=== PATIENT | male | born 1975 | race Caucasian/White ===

== ENCOUNTER 2022-10-08 09:59 | Emergency (ER) | payer OTHER, SELFPAY ==
[2022-10-08 10:18] VITALS: BP 129/90; PULSE 76; RESP 20; TEMP 36.8; O2SAT 98
--- NOTE | 2022-10-08 10:45 | DI.CT_ITS ---
Exam(s) CT HEAD - STROKE PROTOCOL EXAM: CT HEAD - STROKE PROTOCOL CLINICAL HISTORY: right posterior PENA, dizzy, slow response. TECHNIQUE: Imaging Protocol: Axial computed tomography images with coronal and sagittal reformatted images were created and reviewed COMPARISON: No exams were available for comparison FINDINGS: There are no skull fractures. There is no fluid in the visualized paranasal sinuses. There is no evidence of intracranial hemorrhage, mass effect, or shift of midline structures. There are no extra-axial fluid collections. The ventricles are not enlarged or shifted and there is no blo od within the ventricular system nor within the basal cisterns. IMPRESSION: No acute intracranial findings on this noninfused CT scan of the brain. Report called to ER physician. RADIATION DOSE DELIVERED: 781.08mGy.cm Total DLP DATA REPOSITORY: All CT scans at this facility are submitted to the National Radiology Data Registry (NRDR) Dose Index Registry (DIR) with the [employer] (ACR). RADIATION OPTIMIZATION: All CT scans at this facility use at least one of these dose optimization te chniques: automated exposure control; mA and/or kV adjustment per patient size (includes targeted exa ms where dose is matched to clinical indication); or iterative reconstruction.
[2022-10-08 11:01] VITALS: BP 131/78; PULSE 88; RESP 14; O2SAT 98
--- NOTE | 2022-10-08 11:13 | ED.GENADUL_ITS ---
Discharge Plan Disposition Patient Disposition: Home Discharge Details Clinical Impression: Dizziness Primary Care Provider: Elizabeth,Local ED Provider: Ran Cardenas Home Meds and New Rx's Prescriptions: New meclizine 25 mg tablet 25 mg PO BID PRNQty: 20 0RF Continued Jardiance 10 mg tablet 10 mg PO 1XD chlorthalidone 25 mg tablet 50 mg PO 1XD lisinopril 40 mg tablet 40 mg PO 1XD metformin 500 mg tablet extended release 24 hr 1,000 mg PO 1XD Discharge Instructions Instructions: Dizziness (ED) Additional Instructions: Please rest over the next couple days. No exertional activities. Please follow-up with your primary care physician. Return to the emergency department immediately should you have any worsening or new concerning symptoms. Medical Decision Making 1120 --46-year male with history of diabetes and hypertension, here today with dizziness that started while sleeping and associated mild posterior right headache as well as slowed responses this morning. Dizziness has improved since earlier today. Patient is hemodynamically stable. He does have some difficulty with finger-nose and rapid alternating movements and I am concerned about subtle rotary nystagmus. Consider central neurologic process including CVA versus mass. Plan to obtain stat CT of the head and if nondiagnostic plan to MRI brain. -- CT head interpreted by radiology: negative -- Labs reviewed and mild leukocytosis noted. -- MRI of the brain was interpreted by radiology: There are few foci of periventricular signal abnormality on FLAIR imaging.? These are nonspecific and are not associated with hemorrhage or surrounding edema nor restricted diffusion to suggest acute ischemic events. Small post inflammatory retention cyst right maxillary sinus.? No associated fluid level. I spoke with neurology, Dr. Hutton, discussed ED presentation and course as well as MRI results. Regarding MRI findings, she noted these are incidental findings that did not require treatment or follow-up. Patient was given IV fluid bolus and reassessed and notes feeling much better. Patient mentating at baseline. Patient ambulated without any difficulty. I suspect dizziness was peripheral in nature. I will prescribe Antivert. Plan be for discharge with outpatient follow-up with PCP.. He was encouraged to return immediately for any worsening or new concerning symptoms. Lab Data Lab results reviewed: Yes I reviewed the patient's lab results. Labs: Laboratory Tests Range/Units 10/08/22 10/08/22 11:20 11:20 WBC (4.4-10.8) 10^3/uL 10.87 H RBC (4.36-5.78) 10^6/uL 5.72 Hgb (13.5-17.5) g/dL 17.8 H Hct (40.0-50.0) % 52.8 H MCV (80-95) fL 92 MCH (27.0-33.0) pg 31.1 MCHC (32.0-36.0) % 33.7 RDW (11.8-14.1) % 12.5 Plt Count (130-400) 10^3/uL 191 MPV (8.0-11.0) fL 10.0 Immature Gran % 0.4 Neutrophils % 62.7 Lymphocytes % 28.1 Monocytes % 6.5 Eosinophils % 1.7 Basophils % 0.6 Nucleated RBC % (0.0-0.3) % 0.0 Absolute Neutrophils (1.2-6.7) 10^3/uL 6.82 H Absolute Lymphocytes (1.2-3.4) 10^3/uL 3.05 Absolute Monocytes (0.1-0.8) 10^3/uL 0.71 Absolute Eosinophils (0.0-0.7) 10^3/uL 0.18 Absolute Basophils (0.0-0.2) 10^3/uL 0.07 Sodium (136-145) mmol/L 141 Potassium (3.5-5.1) mmol/L 4.2 Chloride (98-107) mmol/L 102 Carbon Dioxide (21.0-32.0) mmol/L 32.0 Anion Gap (3-11) mmol/L 7.0 BUN (7-18) mg/dL 29 H Creatinine (0.70-1.30) mg/dL 1.2 Est GFR (CKD-EPI 2020) (mL/min/1.73m2) 75.06 Glucose (74-106) mg/dL 107 H Calcium (8.5-10.1) mg/dL 9.7 Magnesium (1.8-2.4) mg/dL 2.3 Total Bilirubin (0.2-1.0) mg/dL 0.3 AST (15-37) U/L 18 ALT (16-63) U/L 37 Alkaline Phosphatase (46-116) U/L 73 Total Protein (6.4-8.2) g/dL 7.1 Albumin (3.4-5.0) g/dL 3.4 HPI General Mode of arrival: ambulatory . Date/Time Provider Initiated Documentation: 10/08/22 10:31 . Limitations to Documentation: no limitations . Information obtained by: patient . HPI Narrative: 46-year-old male with history of diabetes, hypertension, here with chief complaint of dizziness. Patient woke up early this morning just because of feeling dizzy while lying in bed. Symptoms worsen when he got up to go to the bathroom. notes he is falling to the side. Dizziness has now resolved but he continues to feel somewhat woozy. He also has associated mild head discomfort right occipital and parietal head. notes he has been somewhat slow to respond this morning. She continues to note that he seems somewhat off. He denies chest pain or shortness of breath. No abdominal pain. Otherwise Related Data Home Medications Medication Instructions Recorded Confirmed chlorthalidone 25 mg tablet 50 mg PO 1XD 10/08/22 10/08/22 empagliflozin 10 mg tablet 10 mg PO 1XD 10/08/22 10/08/22 (Jardiance) lisinopril 40 mg tablet 40 mg PO 1XD 10/08/22 10/08/22 meclizine 25 mg tablet 25 mg PO BID PRN #20 tabs 10/08/22 metformin 500 mg tablet,extended 1,000 mg PO 1XD 10/08/22 10/08/22 release 24 hr Previous Rx's Medication Instructions Recorded meclizine 25 mg tablet 25 mg PO BID PRN #20 tabs 10/08/22 Allergies Allergy/AdvReac Type Severity Reaction Status Date / Time No Known Allergies Allergy Unverified 10/08/22 10:29 General Stated Complaint: GenMedical HALEY: 3 Review of Systems All systems reviewed & are unremarkable except as noted in HPI and below Constitutional Constitutional: Denies fever(s) Eyes Eyes: Denies loss of vision ENT Ears, Nose, Mouth, and Throat: Reports disequilibrium Gastrointestinal Gastrointestinal: Denies abdominal pain Musculoskeletal Musculoskeletal: Denies tingling Neurologic Neurologic: Reports as per HPI, Denies abnormal speech, Reports lack of coordination, Denies localized weakness, Denies loss of vision, Denies seizure- like activity, Denies sensory deficit, Denies tingling and Reports disequilibrium PFSH All Active Problems (Updated 10/08/22 @ 14:36 by Ran Cardenas MD) Dizziness (Acute) Medical History (Updated 10/08/22 @ 14:36 by Ran Cardenas MD) Diabetes HTN (hypertension) Social History Smoking/Tobacco Use Status: Current every day Tobacco Type: cigarettes Smoking risk assessment performed?: Yes Alcohol Intake: current Alcohol Intake frequency: a few times a month Alcohol type: beer Substance use type: does not use Do you feel safe at home: Yes Do you feel safe in your relationship?: Yes Exam Const General: cooperative and no acute distress HENMT Mouth: moist mucous membranes Eyes EOM: EOM intact bilaterally Neck Neck: trachea midline Resp Auscultation: clear to auscultation bilaterally, no rales, no rhonchi and no wheezes Cardio Rate: regular rate and not tachycardic Rhythm: regular rhythm GI Palpation: soft, not firm, no guarding, no masses, not rigid and nontender Skin General skin exam: no rashes or lesions noted Neuro General: patient alert, patient awake, patient oriented x3 and tone normal Cranial Nerves: PERRL, accommodation normal, EOM intact bilaterally, facial strength normal, able to rotate head bilaterally and able to elevate shoulders bilaterally Cognition: normal cognition Speech: speech normal Motor: strength 5/5 throughout Sensory Exam: no sensory deficits noted Coordination: [id number] test abnormal (intermittent difficulty right hand) and [id number]-[id number] test normal Other: some difficulty with rapid alternating movements; subtle rotary nystagmus on vertical gaze Extrem General: no edema Psych Appearance: grossly normal Speech and Movement: speech and movement normal Course Vital Signs Vital signs: Vital Signs Temperature 36.8 C 10/08/22 10:18 Pulse 76 10/08/22 10:18 Respiratory Rate 20 10/08/22 10:18 Blood Pressure 129/90 10/08/22 10:18 Pulse Oximetry 98 10/08/22 10:18 Temperature 36.8 C 10/08/22 10:18 Temperature Source Oral 10/08/22 10:18 Pulse 88 10/08/22 11:01 Respiratory Rate 14 10/08/22 11:01 Blood Pressure 131/78 10/08/22 11:01 Blood Pressure Position Sitting 10/08/22 10:18 Pulse Oximetry 98 10/08/22 11:01 Oxygen Delivery Method Room Air 10/08/22 10:18 Oxygen Flow Rate 0 10/08/22 10:18
[2022-10-08 11:27] LABS: Abs Immature Grans 0.04 10^3/uL (0.0-0.06); Absolute Eosinophil Count 0.18 10^3/uL (0.0-0.7); Absolute Lymphocyte Count 3.05 10^3/uL (1.2-3.4); Absolute Monocyte Count 0.71 10^3/uL (0.1-0.8); Basophils % 0.6; Eosinophils % 1.7; HCT 52.8 % (40.0-50.0); HGB 17.8 g/dL (13.5-17.5); Immature Grans % 0.4; Lymphocytes % 28.1; MCH 31.1 pg (27.0-33.0); MCHC 33.7 % (32.0-36.0); MCV 92 fL (80-95); Monocytes % 6.5; Neutrophils % 62.7; Platelet Count 191 10^3/uL (130-400); RBC 5.72 10^6/uL (4.36-5.78); RDW 12.5 % (11.8-14.1); RDW-SD 42.5 fL; WBC 10.87 10^3/uL (4.4-10.8)
[2022-10-08 11:28] LABS: Absolute Basophil Count 0.07 10^3/uL (0.0-0.2); Absolute Neutrophil Count 6.82 10^3/uL (1.2-6.7)
--- NOTE | 2022-10-08 11:45 | DI.MRI_ITS ---
Exam(s) MR BRAIN WO EXAM: MR BRAIN WO CLINICAL HISTORY: dizzy, right posterior PENA, consider posterior CVA TECHNIQUE: Multiplanar multisequence MRI of the brain was performed. COMPARISON: CT CT HEAD - STROKE PROTOCOL from 10/08/2022 FINDINGS: CEREBRAL PARENCHYMA: There is no evidence of intracranial hemorrhage, mass effect, or shift of midline structures. There are no extra-axial fluid collections. Ventricles are not enlarged or shifted. There is no significant focal signal abnormality in the cerebellar hemispheres nor within the jerry, m idbrain, and thalami. There are few small sub cm white matter foci, not associated hemorrhage or surrounding edema nor evid ence of restricted diffusion at these locations. There is no significant focal signal abnormality evident on diffusion imaging to suggest acute ischem ic event. PITUITARY GLAND: No mass nor parasellar abnormality. No obvious abnormality in the cavernous sinuses. FLOW VOIDS: The expected flow void are noted. No evidence of obvious aneurysm nor obvious vascular ma lformation. PARANASAL SINUSES: There is a small retention cyst in the lateral wall of the right maxillary sinus. No associated fluid level. ORBITS: No obvious findings. IMPRESSION: There are few foci of periventricular signal abnormality on FLAIR imaging. These are nonspecific and are not associated with hemorrhage or surrounding edema nor restricted diffusion to suggest acute is chemic events. Small post inflammatory retention cyst right maxillary sinus. No associated fluid level. Recommend follow-up MRI in 6 months. DATA REPOSITORY:
[2022-10-08 11:48] LABS: ALT 37 U/L (16-63); AST 18 U/L (15-37); Albumin 3.4 g/dL (3.4-5.0); Alkaline Phosphatase 73 U/L (46-116); BUN 29 mg/dL (7-18); Bilirubin, Total 0.3 mg/dL (0.2-1.0); CREATININE 1.2 mg/dL (0.70-1.30); Calcium 9.7 mg/dL (8.5-10.1); Chloride 102 mmol/L (98-107); Estimated GFR 75.06 (mL/min/1.73m2); Glucose 107 mg/dL (74-106); Magnesium 2.3 mg/dL (1.8-2.4); Potassium 4.2 mmol/L (3.5-5.1); Sodium 141 mmol/L (136-145); Total Protein 7.1 g/dL (6.4-8.2)
[2022-10-08 12:04] VITALS: RESP 14
[2022-10-08 13:18] VITALS: BP 110/65; PULSE 77; TEMP 36.8; O2SAT 93
[2022-10-08] MEDS: Lactated Ringers 500 ML IV (13:57)
[2022-10-08 14:35] VITALS: BP 120/84; PULSE 80; RESP 14; O2SAT 100
[2022-10-08 15:00] VITALS: BP 121/86; PULSE 95; TEMP 36.8; O2SAT 99
== END 2022-10-08 15:27 | disposition home or self-care (01) ==
PROVIDERS: Emergency Provider Student in an Organized Health Care Education/Training Program
DX: R42 Dizziness and giddiness (principal); I10 Essential (primary) hypertension; E11.9 Type 2 diabetes mellitus without complications; R51.9 Headache, unspecified; R27.8 Other lack of coordination; D72.829 Elevated white blood cell count, unspecified
CPT/HCPCS: 36415; 80053; 96360; 99284; 70450; 70551; 83735; 85025

== ENCOUNTER 2023-08-30 08:25 | Emergency (ER) | payer OTHER, SELFPAY ==
[2023-08-30 08:30] VITALS: BP 153/95; PULSE 100; RESP 16; TEMP 36.6; O2SAT 99
[2023-08-30 09:08] LABS: Abs Immature Grans 0.02 10^3/uL (0.0-0.06); Absolute Basophil Count 0.07 10^3/uL (0.0-0.2); Absolute Eosinophil Count 0.27 10^3/uL (0.0-0.7); Absolute Lymphocyte Count 2.37 10^3/uL (1.2-3.4); Absolute Monocyte Count 0.57 10^3/uL (0.1-0.8); Absolute Neutrophil Count 5.61 10^3/uL (1.2-6.7); Basophils % 0.8; HCT 47.3 % (40.0-50.0); HGB 16.2 g/dL (13.5-17.5); Immature Grans % 0.2; Lymphocytes % 26.6; MCH 31.2 pg (27.0-33.0); MCHC 34.2 % (32.0-36.0); MCV 91 fL (80-95); MPV 10.1 fL (8.0-11.0); Monocytes % 6.4; Platelet Count 176 10^3/uL (130-400); RDW 12.4 % (11.8-14.1); RDW-SD 41.5 fL; WBC 8.91 10^3/uL (4.4-10.8)
[2023-08-30] MEDS: diazePAM 5 MG TAB PO (09:22)
[2023-08-30] MEDS: HYDROmorphone 2 MG/ML SYR 0.5 MG IVP (09:23)
[2023-08-30] MEDS: Dexamethasone 4 MG/ML VIAL IVP (09:25)
--- NOTE | 2023-08-30 09:30 | DI.CT_ITS ---
Exam(s) CT LUMBAR SPINE RECONS CT ABDOMEN PELVIS W EXAM: CT ABDOMEN PELVIS W and CT lumbar spine recons CLINICAL HISTORY: left flank pain, elevated creatinine TECHNIQUE: Imaging Protocol: Axial computed tomography images with coronal and sagittal reformatted images were created and reviewed. CONTRAST MATERIAL: Intravenous: Omnipaque 350 Contrast volume:100 mL Oral: No COMPARISON: No priors for comparison. FINDINGS: ABDOMEN: Lung Bases: Coronary artery calcifications are present. Calcified granuloma are present in the lungs . Liver: There is diffuse decreased attenuation of the liver consistent with fatty infiltration. No me asurable mass. Hepatomegaly. Portal, Superior Mesenteric, and Splenic Veins: Unremarkable. Gallbladder and Biliary Tract: No radiodense calculus or dilation. Pancreas: Normal density, no abnormal calcifications or inflammatory process. Spleen: Calcified granuloma are seen in the spleen. Adrenals: No masses seen. Kidneys: Normal size, contour and axis. No radiodense stones or obstructive uropathy. There is a tiny hypodensity in the right kidney. It is too small for further characterization but likely reflects a small cyst. Abdominal Aorta: Abdominal portion non-dilated. Atherosclerosis. There is thickening of the wall of the infrarenal abdominal aorta (series 6, image 523 through 700). The wall thickening extends into t he proximal common iliac arteries bilaterally. Bowel: There are few scattered diverticula but no evidence of a diverticulitis. There is no bowel wa ll thickening or obstruction. Surgical clips are seen in the right lower quadrant suggesting prior a ppendectomy. Peritoneal Cavity: No ascites, collection or mesenteric inflammatory response. No free air. Lymph Nodes: Within normal limits. Bones: Within normal limits for the patient's age. Soft Tissues: Unremarkable. Lumbar spine recons: There are degenerative changes seen throughout the lumbar spine. No acute fract ures or subluxations are present. There is mild curvature of the lumbar spine. There is a diffuse d isc bulge at L3-L4 causing moderate central spinal canal stenosis and [id number] bilateral neur al foraminal stenosis. There is also a diffuse disc bulge at L4-L5 causing [id number] central spinal canal stenosis. There is moderately severe bilateral neural foraminal stenosis. There are de generative changes at L5-S1 causing moderately severe bilateral neural foraminal stenosis. PELVIS: Bladder: Symmetric distention, no gross wall thickening. Reproductive Organs: Unremarkable as visualized. Lymph Nodes: Within normal limits. Bones: Within normal limits for the patient's age. IMPRESSION: 1. No evidence of nephrolithiasis or hydronephrosis. 2. Moderate degenerative changes seen throughout the lumbar spine causing central spinal canal stenos is at L3-4 and L4-5 and bilateral neural foraminal stenosis from L3-4 through L5-S1. 3. Fatty infiltration of the liver and hepatomegaly. 4. Thickening of the wall of the infrarenal abdominal aorta. This may represent aortitis. Please co rrelate clinically for acute or chronic symptoms. RADIATION DOSE DELIVERED: 1,568.98mGy.cm Total DLP DATA REPOSITORY: All CT scans at this facility are submitted to the National Radiology Data Registry (NRDR) Dose Index Registry (DIR) with the [employer] (ACR). RADIATION OPTIMIZATION: All CT scans at this facility use at least one of these dose optimization te chniques: automated exposure control; mA and/or kV adjustment per patient size (includes targeted exa ms where dose is matched to clinical indication); or iterative reconstruction.
[2023-08-30 09:37] LABS: ALT 47 U/L (16-63); AST 23 U/L (15-37); Albumin 3.6 g/dL (3.4-5.0); Alkaline Phosphatase 82 U/L (46-116); BUN 37 mg/dL (7-18); Bilirubin, Total 0.4 mg/dL (0.2-1.0); CREATININE 1.6 mg/dL (0.70-1.30); Calcium 9.6 mg/dL (8.5-10.1); Chloride 100 mmol/L (98-107); Estimated GFR 52.82 (mL/min/1.73m2); Glucose 241 mg/dL (74-106); Lipase 75 U/L (16-77); Potassium 4.2 mmol/L (3.5-5.1); Sodium 139 mmol/L (136-145); Total Protein 7.4 g/dL (6.4-8.2)
[2023-08-30] MEDS: HYDROmorphone 2 MG/ML SYR 1 MG IVP (09:52)
[2023-08-30] MEDS: Normal Saline 1,000 ML 1000 ML IV (09:53)
[2023-08-30 10:21] LABS: Bilirubin Negative (Negative); Blood Small (Negative); Clarity Clear (Clear); Glucose >=1000 mg/dL (Negative); Ketones Negative (Negative); Leukocyte Esterase Negative (Negative); Nitrite Negative (Negative); Urobilinogen 0.2 mg/dL (Up to 0.2)
[2023-08-30 10:25] LABS: Bacteria Rare HPF (Negative); C & S Indicated? No; Casts Negative LPF (Negative); Crystals Negative HPF (Negative); Epithelial Cells Rare HPF (Negative); Mucus Negative (Negative); WBC 0-2 HPF (0-5)
--- NOTE | 2023-08-30 10:43 | ED.GENADUL_ITS ---
HPI General Date/Time Provider Initiated Documentation: 08/30/23 08:29 . HPI Narrative: This [id number] with history of diabetes, hypertension, hyperlipidemia, presents with report of back pain, lumbar region with radiation into left lower extremity. States he turned and felt a pop with immediate pain, he has cramping in his left upper thigh, denies saddle anesthesia or strength or sensation changes to his left lower extremity, pain with any sort of ambulation, denies any abdominal pain but does have some flank pain intermittently. Denies chest pain or shortness of breath. Denies changes in bowel or bladder. States the pain is exacerbated with walking. Denies any fever or chills or history of illicit drug use. Related Data Home Medications Medication Instructions Recorded Confirmed chlorthalidone 25 mg tablet 50 mg PO 1XD 10/08/22 08/30/23 empagliflozin 10 mg tablet 10 mg PO 1XD 10/08/22 08/30/23 (Jardiance) lisinopril 40 mg tablet 40 mg PO 1XD 10/08/22 08/30/23 meclizine 25 mg tablet 25 mg PO BID PRN #20 tabs 10/08/22 08/30/23 metformin 500 mg tablet,extended 1,000 mg PO 1XD 10/08/22 08/30/23 release 24 hr allopurinol 100 mg tablet mg PO ONCE 08/30/23 cyclobenzaprine 10 mg tablet 10 mg PO TID PRN #20 tabs 08/30/23 oxycodone 5 mg capsule 5 mg PO BID PRN #8 caps 08/30/23 prednisone 20 mg tablet 40 mg (2 x 20 mg) PO ONCE #10 tabs 08/30/23 Previous Rx's Medication Instructions Recorded meclizine 25 mg tablet 25 mg PO BID PRN #20 tabs 10/08/22 cyclobenzaprine 10 mg tablet 10 mg PO TID PRN #20 tabs 08/30/23 oxycodone 5 mg capsule 5 mg PO BID PRN #8 caps 08/30/23 prednisone 20 mg tablet 40 mg (2 x 20 mg) PO ONCE #10 tabs 08/30/23 Allergies Allergy/AdvReac Type Severity Reaction Status Date / Time No Known Allergies Allergy Unverified 08/30/23 08:42 General Stated Complaint: Nk/Back Pain HALEY: 3 Course Vital Signs Vital signs: Vital Signs Temperature 36.6 C 08/30/23 08:30 Pulse 100 H 08/30/23 08:30 Respiratory Rate 16 08/30/23 08:30 Blood Pressure 153/95 H 08/30/23 08:30 Pulse Oximetry 99 08/30/23 08:30 Temperature 36.6 C 08/30/23 08:30 Temperature Source Skin 08/30/23 08:30 Pulse 100 H 08/30/23 08:30 Respiratory Rate 16 08/30/23 08:30 Respiratory Effort Normal, Non-Labored 08/30/23 08:36 Blood Pressure 153/95 H 08/30/23 08:30 Blood Pressure Position Sitting 08/30/23 08:30 Pulse Oximetry 99 08/30/23 08:30 Oxygen Delivery Method Room Air 08/30/23 08:30 Oxygen Flow Rate 0 08/30/23 08:30 Lab/Test Results Lab/Test Results: Laboratory Tests Range/Units 08/30/23 08/30/23 09:00 09:20 WBC (4.4-10.8) 10^3/uL 8.91 RBC (4.36-5.78) 10^6/uL 5.20 Hgb (13.5-17.5) g/dL 16.2 Hct (40.0-50.0) % 47.3 MCV (80-95) fL 91 MCH (27.0-33.0) pg 31.2 MCHC (32.0-36.0) % 34.2 RDW (11.8-14.1) % 12.4 Plt Count (130-400) 10^3/uL 176 MPV (8.0-11.0) fL 10.1 Immature Gran % 0.2 Neutrophils % 63.0 Lymphocytes % 26.6 Monocytes % 6.4 Eosinophils % 3.0 Basophils % 0.8 Nucleated RBC % (0.0-0.3) % 0.0 Absolute Neutrophils (1.2-6.7) 10^3/uL 5.61 Absolute Lymphocytes (1.2-3.4) 10^3/uL 2.37 Absolute Monocytes (0.1-0.8) 10^3/uL 0.57 Absolute Eosinophils (0.0-0.7) 10^3/uL 0.27 Absolute Basophils (0.0-0.2) 10^3/uL 0.07 Sodium (136-145) mmol/L 139 Potassium (3.5-5.1) mmol/L 4.2 Chloride (98-107) mmol/L 100 Carbon Dioxide (21.0-32.0) mmol/L 31.0 Anion Gap (3-11) mmol/L 8.0 BUN (7-18) mg/dL 37 H Creatinine (0.70-1.30) mg/dL 1.6 H Est GFR (CKD-EPI 2020) (mL/min/1.73m2) 52.82 Glucose (74-106) mg/dL 241 H Calcium (8.5-10.1) mg/dL 9.6 Total Bilirubin (0.2-1.0) mg/dL 0.4 AST (15-37) U/L 23 ALT (16-63) U/L 47 Alkaline Phosphatase (46-116) U/L 82 Total Protein (6.4-8.2) g/dL 7.4 Albumin (3.4-5.0) g/dL 3.6 Lipase (16-77) U/L 75 Urine Color (Yellow) Yellow Urine Clarity (Clear) Clear Urine pH (5-8) 7.0 Ur Specific [place] (1.005-1.025) 1.020 Urine Protein (Negative) mg/dL >=300 H Urine Ketones (Negative) mg/dL Negative Urine Blood (Negative) Small H Urine Nitrite (Negative) Negative Urine Bilirubin (Negative) Negative Urine Urobilinogen (Up to 0.2) mg/dL 0.2 Ur Leukocyte Esterase (Negative) Negative Urine RBC (0-2) HPF 3-5 H Urine WBC (0-5) HPF 0-2 Ur Epithelial Cells (Negative) HPF Rare Urine Crystals (Negative) HPF Negative Urine Bacteria (Negative) HPF Rare Urine Casts (Negative) LPF Negative Urine Mucus (Negative) Negative Ur Culture Indicated? No Urine Glucose (Negative) mg/dL >=1000 H Medical Decision Making 47-year-old male presenting with back pain with radiation into his left lower extremity Patient is afebrile, he is in a good deal pain and will likely require some IV analgesia and muscle relaxation, will also supply steroid Patient is alert and oriented, he has pain in the L2-L3 region, he has a positive straight leg raise, strength and sensation is intact distally, distal pulses are intact all 4 extremities, no abdominal tenderness but some mild left flank tenderness and has protein in his urine with creatinine of 1.6, and given his history of diabetes and glucose of [address] for additional evaluation Patient was told previously that he had protein in his urine and is scheduled to follow-up with nephrology in the outpatient setting on the eighth There is no evidence of cauda equina syndrome clinically, low suspicion for discitis or osteomyelitis clinically Feeling improvement after 1 mg of Dilaudid and 5 mg of oral Valium Patient was administered steroid, he is aware this will likely increase his glucose no abdominal bruit or pulsatile mass, no visible sign of trauma CT abdomen pelvis does not show evidence of acute abnormality, lumbar spine shows spinal stenosis and large osteophyte at L5-S1 which I suspect is contributing to patient's complaints He is referred back to his primary care physician for MRI at their discretion He is ambulatory with antalgic gait but symptomatic improvement at time of discharge home, afebrile and nontoxic Return precautions reviewed and patient expressed understanding, no evidence of cauda equina syndrome clinically Quality:SDOH Health Related Social Needs: No Data to Display PFSH All Active Problems (Updated 08/30/23 @ 11:37 by MARTIN Lanier) Acute left lumbar radiculopathy (Acute) Nonspecific paroxysmal spell (Acute) Vasculitis (Acute) Family history of aneurysm (Acute) Medical History Chronic periaortitis Diabetes HTN (hypertension) CLIFF on CPAP Surgical History No pertinent past surgical history Family History Mother Hypertension Cerebral aneurysm Social History Smoking/Tobacco Use Status: Current every day Tobacco Type: cigarettes Smoking risk assessment performed?: Yes Alcohol Intake: former Drug use: Never Substance use type: does not use Housing: apartment Number of Children: 0 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 What is your relationship status?: never Panel score (0-1 are the most socially isolated patients): 0 Do you feel safe at home: Yes Do you feel safe in your relationship?: Yes Discharge Plan Disposition Patient Disposition: Home Discharge Details Clinical Impression: Acute left lumbar radiculopathy Primary Care Provider: Unknown,Unknown ED Provider: Marleny Moreno Home Meds and New Rx's Prescriptions: New oxycodone 5 mg capsule 5 mg PO BID PRNQty: 8 0RF cyclobenzaprine 10 mg tablet 10 mg PO TID PRNQty: 20 0RF prednisone 20 mg tablet 40 mg PO ONCE Qty: 10 0RF Continued allopurinol 100 mg tablet PO ONCE Patient Comments: TAKE 1 TABLET BY MOUTH EVERY DAY Jardiance 10 mg tablet 10 mg PO 1XD Patient Comments: 25mg q day chlorthalidone 25 mg tablet 50 mg PO 1XD lisinopril 40 mg tablet 40 mg PO 1XD metformin 500 mg tablet extended release 24 hr 1,000 mg PO 1XD meclizine 25 mg tablet 25 mg PO BID PRNQty: 20 0RF Discharge Instructions Additional Instructions: Take prednisone daily as prescribed, you received a dose today, takes your next dose tomorrow Take the oxycodone sparingly, this is an addictive medication, you should not drive for 8 hours after taking this medication and be aware that it may cause constipation I am also writing you for Flexeril, this is a muscle relaxant, please do not operate your vehicle after 8 hours after taking this medication You may feel better while you are on these medication, do not overexert yourself as your back needs time to heal, skip for you to walk around and still engage in activity although some light rest and stretching will be helpful I do recommend following up with your primary care physician and reviewing your kidney function and protein in your urine with the general assembler at your scheduled appointment Your blood sugar was 271 today, please follow-up with your doctor regarding your diabetes regimen Please return earlier should you have new or worsening complaints including changes in bowel or bladder, fever chills, strength or sensation changes to her extremities, or with any new or worsening complaints Discharge Data Discharge Date/Time-TO BE ENTERED AT DEPARTURE: 08/30/23 11:50
[2023-08-30] MEDS: Normal Saline - Diluent 50 ML VIAL IJ (10:45)
[2023-08-30] MEDS: Omnipaque 350 MG/ML 100 ML BTL IJ (10:45)
--- NOTE | 2023-08-30 11:02 | DI.VRAD_ITS ---
PROCEDURE INFORMATION: Exam: CT Abdomen And Pelvis With Contrast Exam date and time: 08/30/2023 10:29 AM Age: 47 years old Clinical indication: Other: Left flank pain elevated creatnine TECHNIQUE: Imaging protocol: Computed tomography of the abdomen and pelvis with contrast. Radiation optimization: All CT scans at this facility use at least one of these dose optimization techniques: automated exposure control; mA and/or kV adjustment per patient size (includes targeted exams where dose is matched to clinical indication); or iterative reconstruction. Contrast material: OMNI 350; Contrast volume: 100 ml; Contrast route: INTRAVENOUS (IV); COMPARISON: CT LUMBAR SPINE RECONS 08/30/2023 10:29 AM FINDINGS: Liver: Diffuse fatty infiltration of the liver. 21 cm. No focal mass. Gallbladder and bile ducts: Normal. No calcified stones. No ductal dilation. Pancreas: Normal. No ductal dilation. Spleen: Splenic calcification. Splenic calcification. Adrenal glands: Normal. No mass. Kidneys and ureters: No nephrolithiasis or hydronephrosis bilaterally. Bilateral renal cortical subcentimeter hypodensities. Too small to characterize. Stomach and bowel: Unremarkable. No obstruction. No mucosal thickening. Appendix: No evidence of appendicitis. Intraperitoneal space: Unremarkable. No free air. No significant fluid collection. Vasculature: Thickening of the aortic wall. No aneurysm. Atherosclerosis changes in intraluminal thrombus present. Lymph nodes: Unremarkable. No enlarged lymph nodes. Urinary bladder: No urinary bladder calculi. Reproductive: Unremarkable as visualized. Bones/joints: Thoracolumbar scoliosis. Disc degeneration L3-L4, L4-L5 and L5-S1. Soft tissues: Unremarkable. IMPRESSION: 1. No nephrolithiasis or hydronephrosis. 2. Hepatomegaly. Diffuse fatty infiltration of the liver. 3. Thickening of the aortic wall. No adjacent inflammatory change. Findings could be secondary to acute or chronic aortitis. Dictated and Authenticated by: Yoni Roberson MD. Ordering:EMERITA Farmer MD
--- NOTE | 2023-08-30 11:27 | DI.VRAD_ITS ---
PROCEDURE INFORMATION: Exam: CT Lumbar Spine Without Contrast Exam date and time: 08/30/2023 10:29 AM Age: 47 years old Clinical indication: Other: Lumbar pain, radiation down leg TECHNIQUE: Imaging protocol: Computed tomography of the lumbar spine without contrast. Radiation optimization: All CT scans at this facility use at least one of these dose optimization techniques: automated exposure control; mA and/or kV adjustment per patient size (includes targeted exams where dose is matched to clinical indication); or iterative reconstruction. COMPARISON: CT ABDOMEN PELVIS W 08/30/2023 10:29 AM FINDINGS: Bones/joints: Thoracolumbar scoliosis. No acute fractures. Disc degeneration L3-L4, L4-L5 and L5-S1. No diastasis of the sacroiliac joints. Multilevel degenerative foraminal narrowing. Most prevalent at L4-L5 and L5-S1. Central spinal stenosis L3-L4 and L4-L5 secondary to disc disease and facet hypertrophy. Right paracentral disc osteophyte L5-S1. Soft tissues: Unremarkable. IMPRESSION: Central spinal stenosis L3-L4 and L4-L5. Right paracentral disc osteophyte narrows the canal at L5-S1. Consider follow-up MRI of the lumbar spine. Dictated and Authenticated by: Yoni Roberson MD. Ordering:EMERITA Farmer MD
[2023-08-30 11:39] VITALS: BP 107/69; PULSE 76; RESP 14; O2SAT 99
== END 2023-08-30 11:50 | disposition home or self-care (01) ==
PROVIDERS: Emergency Provider Physician Assistant
DX: M54.50 Low back pain, unspecified; E11.9 Type 2 diabetes mellitus without complications; E78.5 Hyperlipidemia, unspecified; I10 Essential (primary) hypertension; Z79.84 Long term (current) use of oral hypoglycemic drugs; M48.061 Spinal stenosis, lumbar region without neurogenic claudication; M54.16 Radiculopathy, lumbar region; M25.78 Osteophyte, vertebrae
CPT/HCPCS: 80053; 83690; 96361; 96374; 96375; 96376; 99285; 74177; 81003; 81015; 85025; 99284; J1100; J1170; J3490

== ENCOUNTER 2025-07-23 18:02 | Emergency (ER) | payer OTHER, SELFPAY ==
[2025-07-23 18:05] VITALS: BP 158/102; PULSE 91; RESP 16; TEMP 36.6; O2SAT 94
--- NOTE | 2025-07-23 18:34 | W.ED.GENAD ---
Discharge Plan Disposition Patient Disposition: Home Condition: Stable Discharge Details Clinical Impression: Laceration of left index finger Primary Care Provider: Unknown,Unknown ED Provider: Myranda Mott Home Meds and New Rx's Prescriptions: Continued allopurinol 100 mg tablet 100 mg PO ONCE Patient Comments: TAKE 1 TABLET BY MOUTH EVERY DAY metoprolol succinate 50 mg tablet extended release 24 hr 50 mg PO DAILY rosuvastatin 40 mg tablet 20 mg PO DAILY aspirin 81 mg tablet,chewable 81 mg PO DAILY prasugrel HCl 10 mg tablet 10 mg PO DAILY Jardiance 10 mg tablet 10 mg PO 1XD Patient Comments: 25mg q day lisinopril 40 mg tablet 40 mg PO 1XD metformin 500 mg tablet extended release 24 hr 1,000 mg PO 1XD meclizine 25 mg tablet 25 mg PO BID PRNQty: 20 0RF Discharge Instructions Instructions: Laceration Repair With Glue ED Additional Instructions: Keep clean and dry. The wound glue should slough off on its own in approximately 4-6 days. Do not pick at or scrub the area. After 24 hours you may wash it in a running soap and water. Keep it covered if there is any chance that it may get dirty. Watch for signs of infection including increased red streaks, swelling drainage or concerns. Please take Tylenol or Ibuprofen with food every 4-6 hours as needed for pain and swelling. Follow up with primary care provider in 3-5 days. Return to ED sooner if any worsening or concerns. Stand Alone Forms: Portal Information Referrals: Primary Care Provider [Outside] - 1 week Referral Note: ER follow-up, call for an appointment HPI General Mode of arrival: ambulatory. Date/Time Provider Initiated Documentation: 07/23/25 18:02. Limitations to Documentation: no limitations. Information obtained by: patient, RN notes reviewed and old records reviewed. HPI Narrative: 49 year old male presents to the ER with a chief complaint of left distal index finger laceration which occurred approximately hour and a half prior to arrival. Bleeding is controlled with pressure. Patient does not know when his last tetanus vaccination was. He does take aspirin daily. Related Data Home Medications ?Medication ?Instructions ?Recorded ?Confirmed empagliflozin 10 mg tablet 10 mg PO 1XD 10/08/22 07/23/25 (Jardiance) lisinopril 40 mg tablet 40 mg PO 1XD 10/08/22 07/23/25 meclizine 25 mg tablet 25 mg PO BID PRN #20 tabs 10/08/22 07/23/25 metformin 500 mg tablet,extended 1,000 mg PO 1XD 10/08/22 07/23/25 release 24 hr allopurinol 100 mg tablet 100 mg PO ONCE 08/30/23 07/23/25 aspirin 81 mg chewable tablet 81 mg PO DAILY 07/23/25 07/23/25 metoprolol succinate 50 mg 50 mg PO DAILY 07/23/25 07/23/25 tablet,extended release 24 hr prasugrel HCl 10 mg tablet 10 mg PO DAILY 07/23/25 07/23/25 rosuvastatin 40 mg tablet 20 mg PO DAILY 07/23/25 07/23/25 Previous Rx's ?Medication ?Instructions ?Recorded meclizine 25 mg tablet 25 mg PO BID PRN #20 tabs 10/08/22 Allergies Allergy/AdvReac Type Severity Reaction Status Date / Time No Known Allergies Allergy Unverified 07/23/25 18:09 General Stated Complaint: Laceration HALEY: 4 Review of Systems Integumentary/Breasts Skin/Breast: Reports as per HPI and Reports wounds Exam Const General: cooperative, healthy appearing and comfortable Nutritional Appearance: average body habitus Orientation: alert, awake and oriented x3 Resp Effort & Inspection: normal respiratory effort and able to speak in complete sentences Extrem Left upper extremity: hand Details: laceration 2nd digit dorsal aspect distal Details: linear Hand/finger images:  1. Small 0.5 cm laceration bleeding controlled with pressure, linear. Course Vital Signs Vital signs: Vital Signs Temperature 36.6 C 07/23/25 18:05 Pulse 91 H 07/23/25 18:05 Respiratory Rate 16 07/23/25 18:05 Blood Pressure 158/102 H 07/23/25 18:05 Pulse Oximetry 94 07/23/25 18:05 Temperature 36.6 C 07/23/25 18:05 Temperature Source Oral 07/23/25 18:05 Pulse 91 H 07/23/25 18:05 Respiratory Rate 16 07/23/25 18:05 Blood Pressure 158/102 H 07/23/25 18:05 Blood Pressure Position Sitting 07/23/25 18:05 Pulse Oximetry 94 07/23/25 18:05 Oxygen Delivery Method Room Air 07/23/25 18:05 Oxygen Flow Rate 0 07/23/25 18:05 Pain Level 5 07/23/25 18:19 Medical Decision Making 49 year old male presents to the ER with a chief complaint of left distal index finger laceration which occurred approximately hour and a half prior to arrival. Bleeding is controlled with pressure. Patient does not know when his last tetanus vaccination was. He does take aspirin daily. Laceration cleaned with chlorhexidine and saline. Bleeding is controlled. Tdap booster given. Dermabond applied by balance staff inspector. Wound well-approximated. Given home care instructions and strict return instructions to return for any signs of infection. Patient and family verbalized understanding. This text was generated using [employer] dictation system, please disregard any oddities of phrase or misspellings. PFSH All Active Problems (Updated 07/23/25 @ 19:07 by Myranda Mott NP) Laceration of left index finger (Acute) Nonspecific paroxysmal spell (Acute) Vasculitis (Acute) Family history of aneurysm (Acute) Medical History CLIFF on CPAP Chronic periaortitis HTN (hypertension) Diabetes Surgical History No pertinent past surgical history Family History Mother Hypertension Cerebral aneurysm Social History Smoking/Tobacco Use Status: Former Tobacco Use Smoking risk assessment performed?: Yes Alcohol Intake: current Alcohol Intake frequency: a few times a month Alcohol type: hard liquor Drug use: Never Substance use type: does not use Housing: apartment Number of Children: 0 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 What is your relationship status?: never Panel score (0-1 are the most socially isolated patients): 0 Do you feel safe at home: Yes Do you feel safe in your relationship?: Yes PAWSS Have you Been Recently Intoxicated or Drunk Within the Last 30 days?: No Have you Ever Experienced Previous Episodes of Alcohol Withdrawal?: No Have you ever Experienced Withdrawal Seizures?: No Have you ever Experienced Delirium Tremens(DT)s?: No Have you ever undergone Alcohol Rehabilitation Treatment (i.e, inpt ot outpatient treatment programs)?: No Have you ever Experienced Blackouts?: No Have you ever Combined Alcohol with other Downers within the last 90 days?: No Have you ever Combined Alcohol with any other Substance of Abuse during the last 90 days?: No Positive Blood Alcohol level on Presentation? [PCS.BAL]: No Evidence of Increased Autonomic Activity (i.e. HR>120, tremor, sweating, agitation, nausea)?: No Result: 0
[2025-07-23] MEDS: Diph,Pertuss(Acell),Tet Vac/Pf 0.5 ML SYR IM (19:22)
== END 2025-07-23 19:26 | disposition home or self-care (01) ==
LOC: ER 19:25
PROVIDERS: Emergency Provider Registered Nurse Emergency
DX: S61.211A Laceration without foreign body of left index finger without damage to nail, initial encounter (principal); W26.0XXA Contact with knife, initial encounter
CPT/HCPCS: 90471; 12001; 90715